=== PATIENT | female | born 1930 | race Caucasian/White ===

== ENCOUNTER 2016-12-05 14:25 | Outpatient (CLI) | payer MEDICARE, BC ==
[2015-11-02 10:01] VITALS: O2SAT 93
== END 2016-12-05 14:26 | disposition home or self-care (01) | DRG 561 ==
LOC: CONVCARE 14:25
PROVIDERS: ATTEND Orthopaedic Surgery
DX: Z47.1 Aftercare following joint replacement surgery (principal); M54.5 Low back pain; Z96.642 Presence of left artificial hip joint
CPT/HCPCS: 72192; 73502

== ENCOUNTER 2017-04-26 02:01 | Emergency (ER) | payer MEDICARE, BC ==
[2017-04-26 02:14] VITALS: RESP 18; TEMP 97.9
[2017-04-26] MEDS ORDERED: TRAMADOL HYDROCHLORIDE 50 MG TAB ONE (02:47)
[2017-04-26] MEDS ORDERED: TRAMADOL HYDROCHLORIDE 50 MG TAB PO ONE (02:47)
[2017-04-26 03:09] VITALS: BP 160/77; PULSE 76; O2SAT 96
== END 2017-04-26 03:02 | disposition home or self-care (01) | DRG 206 ==
LOC: ED 02:01
DX: S22.31XA Fracture of one rib, right side, initial encounter for closed fracture (principal); M25.551 Pain in right hip; W01.0XXA Fall on same level from slipping, tripping and stumbling without subsequent striking against object, initial encounter
CPT/HCPCS: 71101; 99283

== ENCOUNTER 2017-05-06 08:23 | Day surgery (SDC) | payer MEDICARE, BC ==
[2017-05-06] MEDS ORDERED: TRIAMCINOLONE ACETONIDE 40 MG/ML SUS ONE (08:44)
[2017-05-06 08:53] VITALS: RESP 16
[2017-05-06 09:28] VITALS: BP 118/54; PULSE 55; TEMP 98; O2SAT 95
== END 2017-05-06 09:50 | disposition home or self-care (01) | DRG 552 ==
LOC: SURG 08:23
PROVIDERS: ATTEND Nurse Anesthetist, Certified Registered
DX: M54.5 Low back pain (principal); M54.16 Radiculopathy, lumbar region
CPT/HCPCS: J3300

== ENCOUNTER 2017-06-03 08:05 | Day surgery (SDC) | payer MEDICARE, BC ==
[2017-06-03] MEDS ORDERED: LIDOCAINE HCL 1% MPF SOL ONE (08:30)
[2017-06-03] MEDS: DEXAMETHASONE SOD PHOS PF 10 MG/ML SOL IJ ONE ×2 (08:36→08:46)
[2017-06-03 08:52] VITALS: BP 137/61; PULSE 65; RESP 18; TEMP 97.1; O2SAT 92
== END 2017-06-03 09:30 | disposition home or self-care (01) | DRG 552 ==
LOC: SURG 08:05
PROVIDERS: ATTEND Nurse Anesthetist, Certified Registered
DX: M54.5 Low back pain (principal); M54.16 Radiculopathy, lumbar region
CPT/HCPCS: J1100; J2001

== ENCOUNTER 2018-06-17 12:30 | Day surgery (SDC) | payer MEDICARE, BC ==
[2018-06-17] MEDS ORDERED: DIAZEPAM 5 MG TAB ONE (12:55)
[2018-06-17] MEDS ORDERED: DEXAMETHASONE SOD PHOS PF 10 MG/ML SOL IJ ONE (13:00)
[2018-06-17] MEDS ORDERED: BUPIVACAINE HCL 0.25% MPF 30 ML SOL INFIL ONE (13:00)
[2018-06-17 13:48] VITALS: BP 157/50; PULSE 72; RESP 20; TEMP 98.5; O2SAT 94
== END 2018-06-17 14:10 | disposition home or self-care (01) | DRG 552 ==
LOC: SURG 12:30
PROVIDERS: ATTEND Nurse Anesthetist, Certified Registered
DX: M48.062 Spinal stenosis, lumbar region with neurogenic claudication (principal); M51.17 Intervertebral disc disorders with radiculopathy, lumbosacral region
CPT/HCPCS: A9270-GY; J1100

== ENCOUNTER 2018-08-11 13:00 | Day surgery (SDC) | payer MEDICARE, BC ==
[2018-08-11] MEDS ORDERED: DIAZEPAM 5 MG TAB ONE (13:30)
[2018-08-11 13:37] VITALS: TEMP 97.6
[2018-08-11] MEDS ORDERED: DEXAMETHASONE SOD PHOS PF 10 MG/ML SOL IJ ONE (14:03)
[2018-08-11] MEDS ORDERED: TRIAMCINOLONE ACETONIDE 40 MG/ML SUS ONE (14:03)
[2018-08-11] MEDS ORDERED: BUPIVACAINE HCL 0.25% MPF 30 ML SOL INFIL ONE (14:03)
[2018-08-11] MEDS ORDERED: LIDOCAINE HCL 1% MPF 30 SOL ONE (14:03)
[2018-08-11 14:24] VITALS: PULSE 68; RESP 20
[2018-08-11 14:58] VITALS: O2SAT 94
[2018-08-11 16:26] VITALS: BP 188/84
== END 2018-08-11 15:45 | disposition home or self-care (01) | DRG 552 ==
LOC: SURG 13:00
PROVIDERS: ATTEND Nurse Anesthetist, Certified Registered
DX: M48.062 Spinal stenosis, lumbar region with neurogenic claudication (principal)
CPT/HCPCS: 76000; A9270-GY; J1100; J2001; J3300

== ENCOUNTER 2019-04-17 17:27 | Emergency (ER) | payer MEDICARE, BC ==
[2019-04-17 18:05] VITALS: BP 132/72; PULSE 68; RESP 18; TEMP 97.8; O2SAT 95
== END 2019-04-17 19:30 | DRG 605 ==
LOC: ED 17:27
DX: S00.03XA Contusion of scalp, initial encounter (principal); W18.30XA Fall on same level, unspecified, initial encounter; R40.2412 Glasgow coma scale score 13-15, at arrival to emergency department
CPT/HCPCS: 99282; G0390

== ENCOUNTER 2019-04-20 13:51 | Day surgery (SDC) | payer MEDICARE, BC ==
[2019-04-20] MEDS ORDERED: BUPIVACAINE HCL 0.25% MPF 30 ML SOL INFIL ONE (15:10)
[2019-04-20] MEDS ORDERED: DEXAMETHASONE SOD PHOS PF 10 MG/ML SOL IJ ONE (15:10)
[2019-04-20 15:42] VITALS: BP 151/46; PULSE 71; RESP 18; TEMP 98.7; O2SAT 96
== END 2019-04-20 16:43 | disposition home or self-care (01) | DRG 552 ==
LOC: SURG 13:51
PROVIDERS: ATTEND Nurse Anesthetist, Certified Registered
DX: M48.062 Spinal stenosis, lumbar region with neurogenic claudication (principal)
CPT/HCPCS: J1100